=== PATIENT | male | born 1985 | race Caucasian/White ===

== ENCOUNTER 2020-05-05 15:37 | Emergency (ER) | payer MEDICAID ==
[~2020-05-05] VITALS: Ht 185.4 cm; Wt 122.5 kg
[~2020-05-05 15:37] MED LIST: ALBU17AE26; ALPR0.5T PO; HYDR-914 PO; VERAPAMIL PO
--- NOTE | 2020-05-05 15:45 | NUR ---
Pt triaged and placed in hallway. notified of pt status
--- NOTE | 2020-05-05 15:50 | NUR ---
Pt walked in to ER with c/o dizziness and nausea since this morning. Reports h/o bipolar d/o and is out of his seroquel and hasn't been feeling well. V/S stable, pt is afebrile. Currently placed in hallway, will continue to monitor.
[2020-05-05 16:03] VITALS: BP_SYST 145
[2020-05-05 16:07] VITALS: BP_SYST 145
--- NOTE | 2020-05-05 16:15 | NUR ---
ER Dr. Guillaume at bedside examining patient.
[2020-05-05] MEDS ORDERED: QUEtiapine FUMARATE 100 MG TABLET PO ONE (16:30)
--- NOTE | 2020-05-05 16:40 | NUR ---
Pt declined seroquel at this time, reports it makes him sleepy and he has to drive home.
--- NOTE | 2020-05-05 16:45 | NUR ---
Patient given written and verbal discharge instructions and verbalizes understanding. ER MD discussed with patient the results and treatment provided. Patient in stable condition. ID arm band removed. Rx of Seroquel given. Patient educated on pain management and to follow up with PMD. Pain Scale 0. Opportunity for questions provided and answered. Medication side effect fact sheet provided.
== END 2020-05-05 16:47 | disposition home or self-care (01) ==
LOC: SED 15:37
DX: F32.9 Major depressive disorder, single episode, unspecified (principal); J45.909 Unspecified asthma, uncomplicated; I10 Essential (primary) hypertension; Z79.899 Other long term (current) drug therapy
CPT/HCPCS: 99283

== ENCOUNTER 2020-10-03 08:23 | Emergency (ER) | payer OTHER, BC, MEDICAID ==
[~2020-10-03] VITALS: Ht 185.4 cm; Wt 120.2 kg
[2020-10-03 08:43] VITALS: BP_SYST 137
[2020-10-03 09:05] VITALS: BP_SYST 137
== END 2020-10-03 09:10 | disposition home or self-care (01) ==
LOC: SED 08:23
DX: S16.1XXA Strain of muscle, fascia and tendon at neck level, initial encounter (principal); S09.90XA Unspecified injury of head, initial encounter; J45.909 Unspecified asthma, uncomplicated; I10 Essential (primary) hypertension; Z79.899 Other long term (current) drug therapy; V49.59XA Passenger injured in collision with other motor vehicles in traffic accident, initial encounter; Y93.89 Activity, other specified; Y92.413 State road as the place of occurrence of the external cause; Y99.8 Other external cause status
CPT/HCPCS: 99282

== ENCOUNTER 2021-03-12 02:18 | Emergency (ER) | payer BC, MEDICAID ==
[~2021-03-12] VITALS: Ht 185.4 cm; Wt 88.5 kg
[2021-03-12 02:20] VITALS: BP_SYST 138
[2021-03-12 03:20] LABS: BASOPHILS % (AUTO) 0.4 % (0.0-2.0); EOSINOPHILS # (AUTO) 0.1 K/uL (0.0-0.4); EOSINOPHILS % (AUTO) 0.6 % (0.0-4.0); HEMATOCRIT 45.3 % (36-54); HEMOGLOBIN 15.9 g/dL (14.0-18.0); LYMPHOCYTES # (AUTO) 2.8 K/uL (1.0-5.5); LYMPHOCYTES % (AUTO) 24.3 % (20.5-51.5); MEAN CORPUSCULAR HEMOGLOBIN 34 pg (27-31); MEAN CORPUSCULAR HGB CONC 35 % (32-36); MEAN CORPUSCULAR VOLUME 97 fL (79.0-98.0); MONOCYTES # (AUTO) 0.9 K/uL (0.0-1.0); MONOCYTES % (AUTO) 7.5 % (1.7-9.3); NEUTROPHILS # (AUTO) 7.8 K/uL (1.8-7.7); NEUTROPHILS % (AUTO) 67.2 % (40.0-70.0); PLATELET COUNT (AUTO) 254 K/uL (130-430); RED BLOOD CELL COUNT(AUTO) 4.65 MIL/uL (4.2-6.2); RED CELL DISTRIBUTION WIDTH 12.9 % (9.0-15.0); WHITE BLOOD COUNT (AUTO) 11.6 K/uL (4.8-10.8)
[2021-03-12 03:33] LABS: ANION GAP 11 (5-15); CALCIUM 8.4 mg/dL (8.4-11.0); CHLORIDE 110 mmol/L (98-107); CREATININE 0.87 mg/dL (0.55-1.30); GLUCOSE 108 mg/dL (70-99); POTASSIUM 3.8 mmol/L (3.5-5.1); SODIUM SERUM 145 mmol/L (136-145); UREA NITROGEN, BLOOD 10 mg/dL (8-21)
[2021-03-12 03:34] LABS: GFR AFRICAN AMERICAN 127 mL/min (>90)
[2021-03-12 03:40] LABS: PHENYTOIN (DILANTIN) < 0.5 ug/mL (10.0-20.0)
[2021-03-12 03:54] VITALS: BP_SYST 138
== END 2021-03-12 03:54 ==
LOC: SED 02:18
DX: R56.9 Unspecified convulsions (principal); I10 Essential (primary) hypertension; J45.909 Unspecified asthma, uncomplicated; Z79.899 Other long term (current) drug therapy
CPT/HCPCS: 36415; 80048; 80185; 85025; 99283

== ENCOUNTER 2021-04-14 14:32 | Emergency (ER) | payer BC, MEDICAID ==
[~2021-04-14] VITALS: Ht 182.9 cm; Wt 95.3 kg
[2021-04-14 14:40] VITALS: BP_SYST 138
[2021-04-14] MEDS ORDERED: HALOPERIDOL LACTATE 5 MG/ML VIAL ONE (14:46)
[2021-04-14] MEDS ORDERED: DIPHENHYDRAMINE INJ 50 MG/ML VIAL ONE (14:46)
[2021-04-14] MEDS ORDERED: KETAMINE HCL 500 MG/10 ML VIAL ONE (15:02)
[2021-04-14] MEDS: KETAMINE 30 MG/3 ML SYRINGE IM ONE (15:09)
[2021-04-14] MEDS: DIPHENHYDRAMINE INJ 50 MG/ML VIAL IM ONE (15:47)
[2021-04-14] MEDS: HALOPERIDOL LACTATE 5 MG/ML VIAL IM ONE (15:47)
[2021-04-14 16:05] LABS: BASOPHILS % (AUTO) 0.4 % (0.0-2.0); EOSINOPHILS # (AUTO) 0.1 K/uL (0.0-0.4); EOSINOPHILS % (AUTO) 1.1 % (0.0-4.0); HEMATOCRIT 42.9 % (36-54); HEMOGLOBIN 14.8 g/dL (14.0-18.0); LYMPHOCYTES # (AUTO) 2.5 K/uL (1.0-5.5); LYMPHOCYTES % (AUTO) 21.1 % (20.5-51.5); MEAN CORPUSCULAR HEMOGLOBIN 34 pg (27-31); MEAN CORPUSCULAR HGB CONC 35 % (32-36); MEAN CORPUSCULAR VOLUME 99 fL (79.0-98.0); MONOCYTES # (AUTO) 0.8 K/uL (0.0-1.0); NEUTROPHILS # (AUTO) 8.5 K/uL (1.8-7.7); NEUTROPHILS % (AUTO) 70.4 % (40.0-70.0); PLATELET COUNT (AUTO) 272 K/uL (130-430); RED BLOOD CELL COUNT(AUTO) 4.34 MIL/uL (4.2-6.2); RED CELL DISTRIBUTION WIDTH 12.7 % (9.0-15.0)
[2021-04-14 16:19] LABS: ANION GAP 17 (5-15); CALCIUM 8.6 mg/dL (8.4-11.0); CHLORIDE 106 mmol/L (98-107); CREATININE 1.05 mg/dL (0.55-1.30); GLUCOSE 144 mg/dL (70-99); SODIUM SERUM 144 mmol/L (136-145); UREA NITROGEN, BLOOD 12 mg/dL (8-21)
[2021-04-14 16:20] LABS: BILIRUBIN,URINE NEGATIVE (NEGATIVE); BLOOD, URINE NEGATIVE (NEGATIVE); CLARITY/URINE CLEAR (CLEAR); COLOR,URINE YELLOW (YELLOW); GLUCOSE,URINE NEGATIVE (NEGATIVE); KETONES,URINE NEGATIVE (NEGATIVE); LEUKOCYTE ESTERASE ,URINE NEGATIVE (NEGATIVE); NITRITE, URINE NEGATIVE (NEGATIVE); PROTEIN URINE NEGATIVE (NEGATIVE); UROBILINOGEN,URINE 0.2 (0.2-1.0)
[2021-04-14 16:29] LABS: GFR AFRICAN AMERICAN 102 mL/min (>90); POTASSIUM 2.9 mmol/L (3.5-5.1)
[2021-04-14] MEDS ORDERED: KCL 40 mEq in 100 mL (PREMIX) 100 ML IV ONE (16:30)
[2021-04-14 16:41] LABS: TOTAL BILIRUBIN 0.2 mg/dL (0.0-1.0)
[2021-04-14 16:42] LABS: ACETAMINOPHEN < 1 ug/mL (1-30); ALANINE AMINOTRANSFERASE 72 U/L (12-78); ALBUMIN 3.8 g/dL (3.4-4.8); ALCOHOL, BLOOD 248 mg/dL (<10); ASPARTATE AMINOTRANSFERASE 41 U/L (10-37)
[2021-04-14] MEDS: ZIPRASIDONE HCL 20 MG CAPSULE (GEODON) PO ONE (16:44)
[2021-04-14] MEDS: NACL 0.9% 1,000 ML IV ONE ×2 (16:45→20:07)
[2021-04-14] MEDS ORDERED: KCL 20 mEq in 100 mL (PREMIX) 200 ML IV ONE (16:56)
[2021-04-14 16:57] LABS: CANNABINOID, URINE POSITIVE (NEG <=50); COCAINE, URINE POSITIVE (NEG <=150); OPIATE, URINE NEGATIVE (NEG <=100); PHENCYCLIDINE SCREEN,URINE NEGATIVE (NEG <=25); UR TRICYCLIC ANTIDEPRESSANTS NEGATIVE (NEG <=300); URINE OXYCODONE SCREEN NEGATIVE (NEG <=100); URINE PROPOXYPHENE SCREEN NEGATIVE (NEG <=300)
[2021-04-14 16:58] LABS: BARBITURATE, URINE NEGATIVE (NEG <=200); BENZODIAZEPINE, URINE NEGATIVE (NEG <=150); METHAMPHETAMINES SCREEN,URINE NEGATIVE (NEG <=500); URINE AMPHETAMINE NEGATIVE (NEG <=500); URINE METHADONE NEGATIVE (NEG <=200)
[2021-04-14] MEDS: MAGNESIUM SULFATE 50 ML IV ONE (17:36)
[2021-04-14] MEDS: KCL 20 mEq in 100 mL (PREMIX) 100 ML IV ONE ×2 (17:49→17:56)
[2021-04-14] MEDS ORDERED: BACITRACIN 1 GM OINT TP ONE (18:39)
[2021-04-14] MEDS ORDERED: strattera PO (18:47)
[2021-04-14] MEDS ORDERED: FLUO40CA8 PO (18:50)
[2021-04-14] MEDS ORDERED: QUET400T PO (18:50)
[2021-04-14 19:18] LABS: CALCIUM 8.3 mg/dL (8.4-11.0); CREATININE 0.88 mg/dL (0.55-1.30); POTASSIUM 3.9 mmol/L (3.5-5.1)
[2021-04-14 20:00] LABS: CKMB RELATIVE INDEX 0.5 (0.0-2.9); CREATINE KINASE MB 5.8 ng/mL (0-3.6)
[2021-04-14] MEDS ORDERED: KETOROLAC TROMETHAMINE 30 MG VIAL ONE (20:00)
[2021-04-14] MEDS: KETOROLAC TROMETHAMINE 30 MG VIAL IVP ONE (20:07)
[2021-04-14] MEDS: MORPHINE 4 MG INJ. 4 MG/ML VIAL IVP ONE (20:34)
[2021-04-15] MEDS: HYDROcodone/ACETAMIN 5-325 MG TAB (NORCO/ VICODIN) PO ONE ×2 (03:56→21:00)
[2021-04-15] MEDS ORDERED: HYDROcodone/ACETAMIN 5-325 MG TAB (NORCO/ VICODIN) ONE (03:59)
[2021-04-15] MEDS ORDERED: FLUoxetine HCL 20 MG CAPSULE (PROzac) PO SCH (09:30)
[2021-04-15] MEDS: FLUoxetine HCL 20 MG CAPSULE (PROzac) PO ONE (10:28)
[2021-04-15] MEDS: HYDROcodone/ACETAMIN 7.5-325 MG TAB PO ONE (10:28)
[2021-04-15] MEDS: QUEtiapine FUMARATE 100 MG TABLET ONE (21:11)
[2021-04-15] MEDS: QUEtiapine FUMARATE 100 MG TABLET PO ONE (21:13)
[2021-04-16] MEDS ORDERED: LORazepam 2 MG/ML VIAL IVP ONE (06:45)
[2021-04-16] MEDS ORDERED: FLUoxetine HCL 20 MG CAPSULE (PROzac) PO SCH (11:45)
[2021-04-16] MEDS: ACETAMINOPHEN 325 MG TABLET PO ONE (11:46)
[2021-04-16] MEDS: FLUoxetine HCL 20 MG CAPSULE (PROzac) PO ONE (11:52)
[2021-04-16] MEDS: QUEtiapine FUMARATE 100 MG TABLET PO ONE (17:53)
[2021-04-16] MEDS ORDERED: QUEtiapine FUMARATE 100 MG TABLET ONE (17:54)
[2021-04-17] MEDS: QUEtiapine FUMARATE 100 MG TABLET PO ONE (05:30)
[2021-04-17 14:35] VITALS: BP_SYST 134
== END 2021-04-17 14:35 | disposition home or self-care (01) ==
LOC: SED 14:32
DX: S61.511A Laceration without foreign body of right wrist, initial encounter (principal); R45.851 Suicidal ideations; F10.129 Alcohol abuse with intoxication, unspecified; F14.10 Cocaine abuse, uncomplicated; I10 Essential (primary) hypertension; J45.909 Unspecified asthma, uncomplicated; Z79.899 Other long term (current) drug therapy; Z20.822 Contact with and (suspected) exposure to COVID-19; X78.8XXA Intentional self-harm by other sharp object, initial encounter; Y93.89 Activity, other specified; Y92.89 Other specified places as the place of occurrence of the external cause; Y99.8 Other external cause status
CPT/HCPCS: 12001; 36415; 73110; 80048; 80053; 80307; 81003; 82550; 82553; 85025; 87426; 96361; 96365; 96366; 96372; 96375; 99285; C9803; G0480; J1200; J1630; J1885; J2270; J3475; J3480; U0003; G0481; G0482

== ENCOUNTER 2021-04-24 07:32 | Emergency (ER) | payer MEDICAID ==
[~2021-04-24] VITALS: Ht 175.3 cm; Wt 81.6 kg
[~2021-04-24 07:32] MED LIST changes: -ALBU17AE26; -ALPR0.5T PO; +FLUO40CA8 PO; -HYDR-914 PO; +QUET400T PO; -VERAPAMIL PO; +strattera PO
[2021-04-24 07:37] VITALS: BP_SYST 137
--- NOTE | 2021-04-24 07:40 | NUR ---
Patient to Hallway bed 1 to gown for evaluation. Side rails up.
--- NOTE | 2021-04-24 07:41 | NUR ---
Pt came in for suture removal of right wrist.
--- NOTE | 2021-04-24 09:13 | NUR ---
MIRIAM Martin at bedside examining patient.
--- NOTE | 2021-04-24 09:20 | NUR ---
Medication and dressing applied per md order.
--- NOTE | 2021-04-24 09:23 | NUR ---
Sutures removed. Pt tolerated well. No signs of distress.
[2021-04-24] MEDS ORDERED: BACITRACIN/POLYMYXIN B SULFATE 30 GM TOPICAL OINT. TP ONE (09:30)
[2021-04-24 09:33] VITALS: BP_SYST 137
--- NOTE | 2021-04-24 09:36 | NUR ---
Patient given written and verbal discharge instructions and verbalizes understanding. ER MD discussed with patient the results and treatment provided. Patient in stable condition. ID arm band removed. IV catheter removed intact and dressing applied, no active bleeding. Patient educated on pain management and to follow up with PMD. Pain Scale 0. Opportunity for questions provided and answered. Medication side effect fact sheet provided.
== END 2021-04-24 09:36 | disposition home or self-care (01) ==
LOC: SED 07:32
DX: S61.511D Laceration without foreign body of right wrist, subsequent encounter (principal); I10 Essential (primary) hypertension; J45.909 Unspecified asthma, uncomplicated; Z48.02 Encounter for removal of sutures; Z79.899 Other long term (current) drug therapy; W45.8XXD Other foreign body or object entering through skin, subsequent encounter
CPT/HCPCS: 99282